=== PATIENT | female | born 1945 | race Caucasian/White ===

== ENCOUNTER 2017-05-23 17:46 | Emergency (ER) | payer MEDICARE, OTHER ==
[2017-05-23 18:11] VITALS: PULSE 99; RESP 18; TEMP 97.9; O2SAT 99
[2017-05-23 18:36] VITALS: BP 175/85
== END 2017-05-23 19:05 | disposition home or self-care (01) | DRG 605 ==
LOC: ED 17:46
DX: S61.210A Laceration without foreign body of right index finger without damage to nail, initial encounter (principal); W19.XXXA Unspecified fall, initial encounter
CPT/HCPCS: 12002; 73130; 99284; G0168; A6402